=== PATIENT | female | born 1960 | race Hispanic/Latino ===

== ENCOUNTER 2020-03-31 03:39 | Observation (INO) | payer MEDICARE ==
[2020-03-31] MEDS ORDERED: HYDROmorphone 1 MG/1 ML INJ IV ONE (06:59)
[2020-03-31] MEDS ORDERED: KETOROLAC 30 MG/1 ML INJ IV ONE (06:59)
--- NOTE | 2020-03-31 07:00 | Emergency Department Report ---
ED Lower Extremity HPI - General Chief Complaint: Extremity Injury, Lower Stated Complaint: RIGHT LEG PAIN Time Seen by Provider: 03/31/20 06:38 Source: patient, EMS ( EMS documentation not available at time of chart dictation ), RN notes reviewed Mode of arrival: Stretcher Limitations: Physical Limitation - History of Present Illness Initial Comments: Patient is a 59-year-old female. She is not known to myself previously. She has a primary care doctor but she cannot recall their name. She has a past medical history of anxiety and obesity. She is brought to the hospital by emergency medical services after accidental trip and fall. She was at home, slipped, and "tripped over my right ankle." She did not hit her head and neck. She complains of sharp throbbing diffuse ankle pain, without hip pain, knee pain, fever pain, she has distal lower extremity pain, without weakness, numbness. She has a lower extremity abrasion, and is up-to-date with vaccinations. She is not able to bear any weight on the right lower extremity. Her pain is sharp and throbbing, increases with palpation and range of motion, and it decreases with rest. The patient was reportedly given morphine by EMS prior to arrival. The patient states she is not on home oxygen. Apparently, upon arrival, the patient was found to be saturating at 90%, and thus started on supplemental oxygen. However, she denies chest pain or shortness of breath MD Complaint: leg injury, ankle injury -: Sudden, hour(s) Injury: Ankle: Right Type of Injury: blunt Place: home Severity: severe Improves With: rest Worsens With: movement, palpation Context: fall, direct blow Associated Symptoms: snap/pop sensation, swelling, unable to bear weight. denies: numbness, tingling Treatments Prior to Arrival: splint, other - Related Data Home Medications Medication Instructions Recorded Confirmed Last Taken clonazePAM [KlonoPIN] 2 mg PO BID PRN 09/10/14 09/10/14 09/10/14 Previous Rx's Medication Instructions Recorded Last Taken Type Amoxicillin 500 mg PO BID #14 tablet 09/10/14 Unknown Rx Antipyrine/Benzocaine/Glycerin 2 drops AU Q8HR #1 bottle 09/10/14 Unknown Rx [Auralgan Otic Soln] FLUoxetine [PROzac] 30 mg PO QDAY #30 capsule 09/10/14 Unknown Rx HYDROcodone/APAP 5-325 [[place] 1 each PO Q6HR PRN #10 tablet 09/10/14 Unknown Rx 5-325 mg TAB] Paliperidone [Invega] 3 mg PO QAM #30 tablet 09/10/14 Unknown Rx Allergies Allergy/AdvReac Type Severity Reaction Status Date / Time No Known Allergies Allergy Unverified 09/10/14 18:47 ED Review of Systems ROS: Stated complaint: RIGHT LEG PAIN Other details as noted in HPI Constitutional: denies: fever Eyes: denies: eye discharge ENT: denies: congestion Respiratory: denies: shortness of breath, wheezing Cardiovascular: denies: chest pain Gastrointestinal: denies: abdominal pain Musculoskeletal: joint swelling, arthralgia, myalgia Skin: lesions Neurological: denies: weakness, numbness, paresthesias ED Past Medical Hx - Past Medical History Previous Medical History?: Yes Hx Psychiatric Treatment: Yes (schizoaffective disorder) Additional medical history: high cholesterol - Surgical History Past Surgical History?: Yes Additional Surgical History: tubal ligation, hysterectomy (2001), x 2 - Social History Smoking Status: Current Every Day Smoker Substance Use Type: None - Medications Home Medications: Home Medications Medication Instructions Recorded Confirmed Last Taken Type Amoxicillin 500 mg PO BID #14 tablet 09/10/14 Unknown Rx Antipyrine/Benzocaine/Glycerin 2 drops AU Q8HR #1 bottle 09/10/14 Unknown Rx [Auralgan Otic Soln] FLUoxetine [PROzac] 30 mg PO QDAY #30 capsule 09/10/14 Unknown Rx HYDROcodone/APAP 5-325 [[place] 1 each PO Q6HR PRN #10 tablet 09/10/14 Unknown Rx 5-325 mg TAB] Paliperidone [Invega] 3 mg PO QAM #30 tablet 09/10/14 Unknown Rx clonazePAM [KlonoPIN] 2 mg PO BID PRN 09/10/14 09/10/14 09/10/14 History ED Physical Exam - General Limitations: Physical Limitation General appearance: alert, anxious, in distress, obese - Head Head exam: Present: atraumatic, normocephalic - Eye Eye exam: Present: normal appearance, EOMI. Absent: nystagmus - ENT ENT exam: Present: normal exam, normal orophraynx, mucous membranes moist, normal external ear exam - Neck Neck exam: Present: normal inspection, full ROM. Absent: tenderness, meningismus - Respiratory Respiratory exam: Present: normal lung sounds bilaterally. Absent: respiratory distress - Cardiovascular Cardiovascular Exam: Present: regular rate, normal rhythm, normal heart sounds. Absent: bradycardia, tachycardia, irregular rhythm, systolic murmur, diastolic murmur, rubs, gallop - GI/Abdominal GI/Abdominal exam: Present: soft. Absent: distended, tenderness, guarding, rebound, rigid, pulsatile mass - Extremities Exam Extremities exam: Present: tenderness (There is diffuse tenderness to the right ankle. There is no significant foot or fifth metatarsal tenderness. There is no calcaneal tenderness. There is no proximal right knee tenderness. There is no right hip tenderness. Range of motion in the right hip and right knee limited secondary to right ankle pain.), normal capillary refill, other (2+ pulses noted in the bilateral upper and lower extremities. Full range of motion in the bilateral upper extremities, and left lower extremity. There is no pelvic/pelvis tenderness. There is no knee tenderness. There is an abrasion noted to the right lower extremity on the dorsal/medial aspect of the right foot. The left ankle and foot are nontender.). Absent: normal inspection, calf tenderness - Back Exam Back exam: Present: normal inspection, full ROM. Absent: tenderness, CVA tenderness (R), CVA tenderness (L), paraspinal tenderness, vertebral tenderness - Neurological Exam Neurological exam: Present: alert, oriented X3, motor sensory deficit (5 out of 5 strength in 4 extremities. Sensation is intact to light touch in 4 extr emities. Patient able to wiggle bilateral toes. There is no calf tenderness, or Achilles tendon tenderness), other (No facial droop. Tongue midline. Extraocular movements intact bilaterally. Facial sensation intact to light touch in V1, V2, V3 distribution bilaterally. 5 and a 5 strength in 4 extremities. Sensation intact to light touch in 4 extremities.) - Psychiatric Psychiatric exam: Present: anxious - Skin Skin exam: Present: warm, abrasion (Right foot abrasion) ED Course Vital Signs 03/31/20 03/31/20 03/31/20 04:49 06:26 07:27 Temperature 98 F Pulse Rate 88 94 H Respiratory 18 18 16 Rate Blood Pressure 108/56 Blood Pressure 153/93 [Left] O2 Sat by Pulse 90 100 Oximetry 03/31/20 03/31/20 03/31/20 07:57 11:01 15:15 Temperature 97.6 F Pulse Rate 87 Respiratory 16 16 16 Rate Blood Pressure Blood Pressure 90/57 [Left] O2 Sat by Pulse 95 Oximetry - Reevaluation(s) Reevaluation #1: 03/31/20 08:27 Differential diagnosis, including but not limited to: Sprain, strain, fracture, dislocation Assessment and plan: 59-year-old female status post slip and fall, with x-rays demonstrated right lateral and medial malleolus fracture with some displacement. She is neurovascularly intact. X-rays of the knee, tibia/fibula, foot otherwise negative. Patient was noted to be hypoxic, she is not typically on home oxygen by her history, we will obtain x-ray of her chest, and reassess. We will also determine if the patient requires supplemental oxygen at this time. We will treat her pain with hydromorphone and ketorolac. Nonweightbearing, and [place] splint to the right lower extremity. She will need to follow-up with an outpatient orthopedist for definitive repair. Reevaluation #2: 03/31/20 11:59 Splint was applied with good success. However, patient continues to be hypoxic. In addition, blood pressure now in the mid to high 80s. She denies physical pain with the exception of her right ankle fracture. ABG, EKG, laboratory studies ordered, IV fluids ordered. We will continue to closely monitor the patient. Supplemental oxygen is ordered for reapplication Reevaluation #3: 03/31/20 12:20 D-dimer elevated. CT scan of the chest is ordered and pending. Hypoxia improved, on 2 to 3 L. Blood pressure improved. Patient resting comfortably. Updated patient on plan of care. She is amenable to hospitalization. Arterial blood gas appears to demonstrate a mild respiratory acidosis, without metabolic compensation. From an orthopedic/ankle fracture perspective, the patient does not require admission or hospitalization as per discussion with consulting orthopedics. She is supposed to follow-up next week for operative fixation. However, she does require medical hospitalization for hypoxemic respiratory failure, and respiratory acidosis. 03/31/20 13:36 Laboratory studies have also demonstrated renal insufficiency. Nuclear medicine studies ordered, CT scan of the chest was canceled. Patient denies cough, loss of taste or smell. I clinically do not suspect COVID. I have discussed the case with the hospital physician, Dr. Hurtado, who requests a COVID test. He indicates he will followed up. Patient sleeping comfortably in her stretcher at this time, blood pressure is improved Reevaluation #4: 03/31/20 15:52 Nuclear medicine study is low probability for pulmonary embolism. - Consultations Consultation #1: 03/31/20 09:36 We do not have orthopedics on-call for this facility today. Therefore, reached out to [facility] transfer center, and discussed the case with their orthopedist on-call, Dr. Santa Daly We discussed the patient's history, physical, pertinent x-ray findings, and he personally reviewed the patient's ankle x-rays. We both agree the patient does not require emergent transfer at this time for emergent surgical fixation. He is agreeable to splint, nonweightbearing, and close follow-up next week. The patient can follow-up at his group, [facility], . He indicates that short course of NSAIDs would be acceptable. X-ray of the chest is unremarkable. The patient is still sleeping. At this point time, she still requires mild supplemental oxygen, this is likely secondary to obesity, and opioids. Patient will need to be awake in order to be discharged. ED Lower Extremity MDM - Lab Data Result diagrams: 03/31/20 11:37 03/31/20 11:37 Vital Signs 03/31/20 03/31/20 04:49 06:26 Temperature 98 F Pulse Rate 88 94 H Respiratory 18 18 Rate Blood Pressure 108/56 Blood Pressure 153/93 [Left] O2 Sat by Pulse 90 100 Oximetry Lab Results 03/31/20 03/31/20 03/31/20 Range/Units 11:37 11:37 11:37 WBC 5.9 (4.5-11.0) K/mm3 RBC 4.05 (3.65-5.03) M/mm3 Hgb 13.4 (10.1-14.3) gm/dl Hct 40.0 (30.3-42.9) % MCV 99 H (79-97) fl MCH 33 H (28-32) pg MCHC 34 (30-34) % RDW 14.1 (13.2-15.2) % Plt Count 138 L (140-440) K/mm3 Lymph % (Auto) 28.6 (13.4-35.0) % [place] % (Auto) 10.9 H (0.0-7.3) % Eos % (Auto) 2.2 (0.0-4.3) % Baso % (Auto) 1.1 (0.0-1.8) % Lymph # 1.7 (1.2-5.4) K/mm3 [place] # 0.6 (0.0-0.8) K/mm3 Eos # 0.1 (0.0-0.4) K/mm3 Baso # 0.1 (0.0-0.1) K/mm3 Seg Neutrophils % 57.2 (40.0-70.0) % Seg Neutrophils # 3.4 (1.8-7.7) K/mm3 PT 12.6 (12.2-14.9) Sec. INR 0.93 (0.87-1.13) D-Dimer 440.11 H (0-234) ng/mlDDU ABG pH (7.350-7.450) pH Units ABG pCO2 mm Hg ABG pO2 (80.0-90.0) mm Hg ABG HCO3 (20.0-26.0) mmol/L ABG O2 Saturation (95.0-99.0) % ABG O2 Content (0.0-44) ABG Base Excess (-2.0-3.0) mmol/L ABG Hemoglobin (12.0-16.0) gm/dl ABG Carboxyhemoglobin (0.0-5.0) % ABG Methemoglobin (0.0-1.5) % Oxyhemoglobin (95.0-99.0) % FiO2 % Estimated GFR 42 ml/min BUN/Creatinine Ratio 12 % Troponin T < 0.010 (0.00-0.029) ng/mL Albumin/Globulin Ratio 1.2 % 03/31/20 Range/Units 12:07 WBC (4.5-11.0) K/mm3 RBC (3.65-5.03) M/mm3 Hgb (10.1-14.3) gm/dl Hct (30.3-42.9) % MCV (79-97) fl MCH (28-32) pg MCHC (30-34) % RDW (13.2-15.2) % Plt Count (140-440) K/mm3 Lymph % (Auto) (13.4-35.0) % [place] % (Auto) (0.0-7.3) % Eos % (Auto) (0.0-4.3) % Baso % (Auto) (0.0-1.8) % Lymph # (1.2-5.4) K/mm3 [place] # (0.0-0.8) K/mm3 Eos # (0.0-0.4) K/mm3 Baso # (0.0-0.1) K/mm3 Seg Neutrophils % (40.0-70.0) % Seg Neutrophils # (1.8-7.7) K/mm3 PT (12.2-14.9) Sec. INR (0.87-1.13) D-Dimer (0-234) ng/mlDDU ABG pH 7.335 L (7.350-7.450) pH Units ABG pCO2 50.3 mm Hg ABG pO2 57.3 L (80.0-90.0) mm Hg ABG HCO3 26.2 H (20.0-26.0) mmol/L ABG O2 Saturation 89.4 L (95.0-99.0) % ABG O2 Content 15.6 (0.0-44) ABG Base Excess -0.2 (-2.0-3.0) mmol/L ABG Hemoglobin 12.9 (12.0-16.0) gm/dl ABG Carboxyhemoglobin 3.2 (0.0-5.0) % ABG Methemoglobin 0.5 (0.0-1.5) % Oxyhemoglobin 86.0 L (95.0-99.0) % FiO2 21 % Estimated GFR ml/min BUN/Creatinine Ratio % Troponin T (0.00-0.029) ng/mL Albumin/Globulin Ratio % Lab Results 03/31/20 03/31/20 03/31/20 Range/Units 11:37 11:37 11:37 WBC 5.9 (4.5-11.0) K/mm3 RBC 4.05 (3.65-5.03) M/mm3 Hgb 13.4 (10.1-14.3) gm/dl Hct 40.0 (30.3-42.9) % MCV 99 H (79-97) fl MCH 33 H (28-32) pg MCHC 34 (30-34) % RDW 14.1 (13.2-15.2) % Plt Count 138 L (140-440) K/mm3 Lymph % (Auto) 28.6 (13.4-35.0) % [place] % (Auto) 10.9 H (0.0-7.3) % Eos % (Auto) 2.2 (0.0-4.3) % Baso % (Auto) 1.1 (0.0-1.8) % Lymph # 1.7 (1.2-5.4) K/mm3 [place] # 0.6 (0.0-0.8) K/mm3 Eos # 0.1 (0.0-0.4) K/mm3 Baso # 0.1 (0.0-0.1) K/mm3 Seg Neutrophils % 57.2 (40.0-70.0) % Seg Neutrophils # 3.4 (1.8-7.7) K/mm3 PT 12.6 (12.2-14.9) Sec. INR 0.93 (0.87-1.13) D-Dimer 440.11 H (0-234) ng/mlDDU ABG pH (7.350-7.450) pH Units ABG pCO2 mm Hg ABG pO2 (80.0-90.0) mm Hg ABG HCO3 (20.0-26.0) mmol/L ABG O2 Saturation (95.0-99.0) % ABG O2 Content (0.0-44) ABG Base Excess (-2.0-3.0) mmol/L ABG Hemoglobin (12.0-16.0) gm/dl ABG Carboxyhemoglobin (0.0-5.0) % ABG Methemoglobin (0.0-1.5) % Oxyhemoglobin (95.0-99.0) % FiO2 % Sodium 142 (137-145) mmol/L Potassium 5.2 H (3.6-5.0) mmol/L Chloride 103.7 (98-107) mmol/L Carbon Dioxide 26 (22-30) mmol/L Anion Gap 18 mmol/L BUN 15 (7-17) mg/dL Creatinine 1.3 H (0.6-1.2) mg/dL Estimated GFR 42 ml/min BUN/Creatinine Ratio 12 % Glucose 119 H (65-100) mg/dL Calcium 8.9 (8.4-10.2) mg/dL Total Bilirubin 0.20 (0.1-1.2) mg/dL AST 15 (5-40) units/L ALT 19 (7-56) units/L Alkaline Phosphatase 95 (35-129) units/L Troponin T < 0.010 (0.00-0.029) ng/mL Total Protein 6.3 (6.3-8.2) g/dL Albumin 3.4 L (3.9-5) g/dL Albumin/Globulin Ratio 1.2 % 08// Range/Units 12:07 WBC (4.5-11.0) K/mm3 RBC (3.65-5.03) M/mm3 Hgb (10.1-14.3) gm/dl Hct (30.3-42.9) % MCV (79-97) fl MCH (28-32) pg MCHC (30-34) % RDW (13.2-15.2) % Plt Count (140-440) K/mm3 Lymph % (Auto) (13.4-35.0) % [place] % (Auto) (0.0-7.3) % Eos % (Auto) (0.0-4.3) % Baso % (Auto) (0.0-1.8) % Lymph # (1.2-5.4) K/mm3 [place] # (0.0-0.8) K/mm3 Eos # (0.0-0.4) K/mm3 Baso # (0.0-0.1) K/mm3 Seg Neutrophils % (40.0-70.0) % Seg Neutrophils # (1.8-7.7) K/mm3 PT (12.2-14.9) Sec. INR (0.87-1.13) D-Dimer (0-234) ng/mlDDU ABG pH 7.335 L (7.350-7.450) pH Units ABG pCO2 50.3 mm Hg ABG pO2 57.3 L (80.0-90.0) mm Hg ABG HCO3 26.2 H (20.0-26.0) mmol/L ABG O2 Saturation 89.4 L (95.0-99.0) % ABG O2 Content 15.6 (0.0-44) ABG Base Excess -0.2 (-2.0-3.0) mmol/L ABG Hemoglobin 12.9 (12.0-16.0) gm/dl ABG Carboxyhemoglobin 3.2 (0.0-5.0) % ABG Methemoglobin 0.5 (0.0-1.5) % Oxyhemoglobin 86.0 L (95.0-99.0) % FiO2 21 % Sodium (137-145) mmol/L Potassium (3.6-5.0) mmol/L Chloride (98-107) mmol/L Carbon Dioxide (22-30) mmol/L Anion Gap mmol/L BUN (7-17) mg/dL Creatinine (0.6-1.2) mg/dL Estimated GFR ml/min BUN/Creatinine Ratio % Glucose (65-100) mg/dL Calcium (8.4-10.2) mg/dL Total Bilirubin (0.1-1.2) mg/dL AST (5-40) units/L ALT (7-56) units/L Alkaline Phosphatase (35-129) units/L Troponin T (0.00-0.029) ng/mL Total Protein (6.3-8.2) g/dL Albumin (3.9-5) g/dL Albumin/Globulin Ratio % - EKG Data -: EKG Interpreted by Me EKG shows normal: sinus rhythm Rate: normal - EKG Data When compared to previous EKG there are: previous EKG unavailable 03/31/20 12:00 Sinus rhythm, 84 bpm, normal axis, QTC 450 ms, T wave inversions in septal lateral leads, incomplete right bundle branch block, abnormal EKG, the EKG is not a STEMI. - Radiology Data Radiology results: report reviewed, image reviewed interpreted by me: X-ray of the right knee negative for acute findings. X-ray of the right tibia/fibula show right lateral malleolus fracture/right medial malleolus fracture. There is posterior displacement. RIGHT FOOT 2 VIEWS INDICATION / CLINICAL INFORMATION: fall ankle foot pain. COMPARISON: None available. FINDINGS: Trimalleolar ankle fracture with mild subluxation of the talus relative to the tibia. Signer Name: Morteza Jacinto MD FACR Signed: 03/31/2020 8:04 AM Workstation Name: [id number] RIGHT KNEE 3 VIEWS INDICATION / CLINICAL INFORMATION: fall legh pain. COMPARISON: None available. FINDINGS: No significant skeletal abnormality Signer Name: Morteza Jacinto MD FACR Signed: 03/31/2020 8:03 AM Workstation Name: [id number] RIGHT TIBIA AND FIBULA 4 VIEWS INDICATION / CLINICAL INFORMATION: fall leg pain. COMPARISON: None available. FINDINGS: Trimalleolar ankle fracture with mild subluxation of the talus. Signer Name: Morteza Jacinto MD FACR Signed: 03/31/2020 8:02 AM Workstation Name: [id number] Critical care attestation.: If time is entered above; I have spent that time in minutes in the direct care of this critically ill patient, excluding procedure time. ED Disposition Clinical Impression: Acute hypoxemic respiratory failure, Respiratory acidosis, Renal insufficiency Closed right trimalleolar fracture Qualifiers: Encounter type: initial encounter Qualified Code(s): S82.851A - Displaced trimalleolar fracture of right lower leg, initial encounter for closed fracture Disposition: DC-09 OP ADMIT IP TO THIS HOSP Is pt being admited?: Yes Does the pt Need Aspirin: No Condition: Good
--- NOTE | 2020-03-31 09:07 | XRay Report ---
RIGHT TIBIA AND FIBULA 4 VIEWS INDICATION / CLINICAL INFORMATION: fall leg pain. COMPARISON: None available. FINDINGS: Trimalleolar ankle fracture with mild subluxation of the talus. Signer Name: Morteza Jacinto MD FACAbhijit Signed: 03/31/2020 9:02 AM Workstation Name: [id number]
--- NOTE | 2020-03-31 09:07 | XRay Report ---
RIGHT KNEE 3 VIEWS INDICATION / CLINICAL INFORMATION: fall legh pain. COMPARISON: None available. FINDINGS: No significant skeletal abnormality Signer Name: Morteza Jacinto MD FACR Signed: 03/31/2020 9:03 AM Workstation Name: [id number]
--- NOTE | 2020-03-31 09:08 | XRay Report ---
RIGHT FOOT 2 VIEWS INDICATION / CLINICAL INFORMATION: fall ankle foot pain. COMPARISON: None available. FINDINGS: Trimalleolar ankle fracture with mild subluxation of the talus relative to the tibia. Signer Name: Morteza Jacinto MD FACR Signed: 03/31/2020 9:04 AM Workstation Name: [id number]
--- NOTE | 2020-03-31 09:13 | XRay Report ---
CHEST 1 VIEW 0822 INDICATION / CLINICAL INFORMATION: fall ankle pain COMPARISON: 09/10/2014 FINDINGS: SUPPORT DEVICES: None HEART / MEDIASTINUM: No significant abnormality. LUNGS / PLEURA: Less than full degree of inspiration is seen. Mild atelectasis is seen in the left ba se. No definite acute infiltrates are noted. Possibly there is a minimal left pleural effusion. No pn eumothorax. ADDITIONAL FINDINGS: No significant additional findings. IMPRESSION: No significant acute abnormality Signer Name: Oscar Hutchins MD Signed: 03/31/2020 9:08 AM Workstation Name: [id number]
[2020-03-31] MEDS ORDERED: fentaNYL 100 MCG/2 ML INJ IV ONE (10:51)
[2020-03-31] MEDS ORDERED: SODIUM CHLORIDE 0.9% 1000 ML 1,000 ML IV ONE ×2 (11:05→13:26)
[2020-03-31 11:52] LABS: Basophils # (Auto) 0.1 K/mm3 (0.0-0.1); Basophils % (Auto) 1.1 % (0.0-1.8); Eosinophils # (Auto) 0.1 K/mm3 (0.0-0.4); Eosinophils % (Auto) 2.2 % (0.0-4.3); Hemoglobin 13.4 gm/dl (10.1-14.3); Lymphocytes # (Auto) 1.7 K/mm3 (1.2-5.4); Lymphocytes % (Auto) 28.6 % (13.4-35.0); Mean Corpuscular HGB Conc 34 % (30-34); Mean Corpuscular Volume 99 fl (79-97); Monocytes # (Auto) 0.6 K/mm3 (0.0-0.8); Monocytes % (Auto) 10.9 % (0.0-7.3); Platelet Count 138 K/mm3 (140-440); Red Blood Count 4.05 M/mm3 (3.65-5.03); Red Cell Distribution Width 14.1 % (13.2-15.2)
[2020-03-31 12:03] LABS: INR 0.93 (0.87-1.13)
[2020-03-31 12:13] LABS: Alanine Aminotransferase 19 units/L (7-56); Albumin 3.4 g/dL (3.9-5); BUN/Creatinine Ratio 12; Blood Urea Nitrogen 15 mg/dL (7-17); Calcium 8.9 mg/dL (8.4-10.2); Hemolysis Index 5
[2020-03-31 12:19] LABS: ABG Base Excess -0.2 mmol/L (-2.0-3.0); ABG HCO3 26.2 mmol/L (20.0-26.0); ABG Methemoglobin 0.5 % (0.0-1.5); ABG Oxygen Saturation 89.4 % (95.0-99.0); ABG PCO2 50.3 mm Hg; ABG PH 7.335 pH Units (7.350-7.450); ABG PO2 57.3 mm Hg (80.0-90.0)
[2020-03-31] MEDS ORDERED: dexAMETHasone 4 MG/ML VIAL IV ONE (13:36)
[2020-03-31] MEDS ORDERED: ETOMIDATE 20 MG/10 ML INJ IV ONE (14:57)
[2020-03-31] MEDS ORDERED: LIDOCAINE PF 100 MG/5 ML (CARDIAC SYRINGE) IV ONE (14:57)
[2020-03-31] MEDS ORDERED: SUCCINYLCHOLINE CHLORIDE 200 MG/10 ML INJ MDV ONE (14:57)
[2020-03-31] MEDS ORDERED: ONDANSETRON 4 MG/2 ML INJ IV PRN (15:23)
[2020-03-31] MEDS ORDERED: ACETAMINOPHEN 325 MG TAB PO PRN (15:23)
--- NOTE | 2020-03-31 15:39 | Nuclear Medicine Report ---
NM perfusion only lung scan INDICATION / CLINICAL INFORMATION: hypoxia + d dimer. TRACER: [place] 99m MAA 5.5 mCi IV injection. COMPARISON: No relevant prior imaging study available. FINDINGS: Nuclear medicine perfusion only imaging was performed. Perfusion is relatively homogeneous. Negative for suspicious perfusion defect. IMPRESSION: No suspicious perfusion defect. Signer Name: Jonathan Stacy MD Signed: 03/31/2020 3:35 PM Workstation Name: [id number]
--- NOTE | 2020-03-31 15:42 | Consultation ---
History of Present Illness Consult date: 03/31/20 Requesting physician: BRIANDA HENDRICKSON Reason for consult: hypoxemia History of present illness: 59 y/o morbidly obese female presented with right ankle pain after a fall. Subsequently while in ED found to be hypoxic. no complaints of shortness of breath. Medications and Allergies Allergies Allergy/AdvReac Type Severity Reaction Status Date / Time No Known Allergies Allergy Unverified 09/10/14 18:47 Home Medications Medication Instructions Recorded Confirmed Last Taken Type Amoxicillin 500 mg PO BID #14 tablet 09/10/14 Unknown Rx Antipyrine/Benzocaine/Glycerin 2 drops AU Q8HR #1 bottle 09/10/14 Unknown Rx [Auralgan Otic Soln] FLUoxetine [PROzac] 30 mg PO QDAY #30 capsule 09/10/14 Unknown Rx HYDROcodone/APAP 5-325 [[place] 1 each PO Q6HR PRN #10 tablet 09/10/14 Unknown Rx 5-325 mg TAB] Paliperidone [Invega] 3 mg PO QAM #30 tablet 09/10/14 Unknown Rx clonazePAM [KlonoPIN] 2 mg PO BID PRN 09/10/14 09/10/14 09/10/14 History Active Meds: Active Medications Acetaminophen (Tylenol) 650 mg PO Q4H PRN PRN Reason: Pain MILD(1-3)/Fever >100.5/CARO Acetaminophen/Hydrocodone Bitart ([place] 5/325) 1 each PO Q6H PRN PRN Reason: Pain, Moderate (4-6) Albuterol/Ipratropium (Duoneb *Not For Prn Use*) 1 ampul IH Q6HRT [place] Budesonide (Pulmicort) 0.5 mg IH Q12HRT [place] Clonazepam (Klonopin) 1 mg PO BID PRN PRN Reason: Anxiety Fluoxetine HCl (Prozac) 30 mg PO QDAY [place] Heparin Sodium (Porcine) (Heparin) 5,000 unit SUB-Q Q8HR [place] Morphine Sulfate (Morphine) 2 mg IV Q4H PRN PRN Reason: Pain, Moderate (4-6) Ondansetron HCl (Zofran) 4 mg IV Q8H PRN PRN Reason: Nausea And Vomiting Paliperidone (Invega) 3 mg PO QAM [facility] Sodium Chloride (Sodium Chloride Flush Syringe 10 Ml) 10 ml IV BID [place] Sodium Chloride (Sodium Chloride Flush Syringe 10 Ml) 10 ml IV PRN PRN PRN Reason: LINE FLUSH Physical Examination Vital signs: Vital Signs Temp Pulse Resp BP Pulse Ox 98 F 88 18 108/56 90 03/31/20 04:49 03/31/20 04:49 03/31/20 04:49 03/31/20 04:49 03/31/20 04:49 Results - Laboratory Findings CBC and BMP: 03/31/20 11:37 03/31/20 11:37 ABG ABG pH 7.335 pH Units (7.350-7.450) L 03/31/20 12:07 ABG pCO2 50.3 mm Hg 03/31/20 12:07 ABG pO2 57.3 mm Hg (80.0-90.0) L 03/31/20 12:07 ABG O2 Saturation 89.4 % (95.0-99.0) L 03/31/20 12:07 PT/INR, D-dimer PT 12.6 Sec. (12.2-14.9) 03/31/20 11:37 INR 0.93 (0.87-1.13) 03/31/20 11:37 D-Dimer 440.11 ng/mlDDU (0-234) H 03/31/20 11:37 Abnormal lab findings: Abnormal Labs 03/31/20 03/31/20 03/31/20 11:37 11:37 11:37 MCV 99 H MCH 33 H Plt Count 138 L [place] % (Auto) 10.9 H D-Dimer 440.11 H ABG pH ABG pO2 ABG HCO3 ABG O2 Saturation Oxyhemoglobin Potassium 5.2 H Creatinine 1.3 H Glucose 119 H Albumin 3.4 L 03/31/20 12:07 MCV MCH Plt Count [place] % (Auto) D-Dimer ABG pH 7.335 L ABG pO2 57.3 L ABG HCO3 26.2 H ABG O2 Saturation 89.4 L Oxyhemoglobin 86.0 L Potassium Creatinine Glucose Albumin Assessment and Plan 59 y/o female, likely with undiagnosed INNA, and OHS with what is most likely c hronic respiratory failure. 1. Room air ABG qualifies patient for home O2. Needs CM consult to arrange this 2. She needs outpatient INNA study 3. Weight loss 4. Can stop pulmicort and would make nebs PRN, q6
[2020-03-31] MEDS ORDERED: ALBUTEROL 2.5 MG/3 ML NEBU IH PRN (15:47)
--- NOTE | 2020-03-31 17:16 | History and Physical Report ---
History of Present Illness Date of examination: 03/31/20 Date of admission: 03/31/20 13:37 History of present illness: Patient is a 59-year-old morbidly obese white female with history of recently diagnosed type 2 diabetes, schizoaffective disorder apparently tripped and fell and was brought to the ED. x-ray of the ankle showed bimalleolar fracture of the right ankle. Orthopedic surgery was consulted and apparently was told to follow-up in the clinic next week. Patient has a POV slab on her rt ankle. However patient was also noted to be hypoxic and an ABG showed combined respiratory failure with hypoxia and hypercapnia and patient is being admitted for further evaluation. A pulmonary consult was obtained with Dr. Russell and he thinks patient likely has chronic hypoxia from possibly INNA/OHS. convenience store manager has been consulted for arranging home oxygen as she already meets oxygen requirements per ABG results on room air. Past History Past Medical History: diabetes, other (Schizoaffective disorder and depression) Past Surgical History: No surgical history Social history: smoking. denies: alcohol abuse Family history: no significant family history Medications and Allergies Allergies Allergy/AdvReac Type Severity Reaction Status Date / Time No Known Allergies Allergy Unverified 09/10/14 18:47 Home Medications Medication Instructions Recorded Confirmed Last Taken Type Amoxicillin 500 mg PO BID #14 tablet 09/10/14 Unknown Rx Antipyrine/Benzocaine/Glycerin 2 drops AU Q8HR #1 bottle 09/10/14 Unknown Rx [Auralgan Otic Soln] FLUoxetine [PROzac] 30 mg PO QDAY #30 capsule 09/10/14 Unknown Rx HYDROcodone/APAP 5-325 [[place] 1 each PO Q6HR PRN #10 tablet 09/10/14 Unknown Rx 5-325 mg TAB] Paliperidone [Invega] 3 mg PO QAM #30 tablet 09/10/14 Unknown Rx clonazePAM [KlonoPIN] 2 mg PO BID PRN 09/10/14 09/10/14 09/10/14 History Active Meds: Active Medications Acetaminophen (Tylenol) 650 mg PO Q4H PRN PRN Reason: Pain MILD(1-3)/Fever >100.5/CARO Acetaminophen/Hydrocodone Bitart ([place] 5/325) 1 each PO Q6H PRN PRN Reason: Pain, Moderate (4-6) Albuterol (Proventil) 2.5 mg IH Q4HRT PRN PRN Reason: Shortness Of Breath Clonazepam (Klonopin) 1 mg PO BID PRN PRN Reason: Anxiety Fluoxetine HCl (Prozac) 30 mg PO QDAY [facility] Heparin Sodium (Porcine) (Heparin) 5,000 unit SUB-Q Q8HR CLARISSA Insulin Human Lispro (Humalog) 0 unit SUB-Q ACHS CLARISSA; Protocol Morphine Sulfate (Morphine) 2 mg IV Q4H PRN PRN Reason: Pain, Moderate (4-6) Ondansetron HCl (Zofran) 4 mg IV Q8H PRN PRN Reason: Nausea And Vomiting Paliperidone (Invega) 3 mg PO QAM CLARISSA Sodium Chloride (Sodium Chloride Flush Syringe 10 Ml) 10 ml IV BID CLARISSA Sodium Chloride (Sodium Chloride Flush Syringe 10 Ml) 10 ml IV PRN PRN PRN Reason: LINE FLUSH Review of Systems Constitutional: no weight loss, no weight gain, no fever, no chills, no fatigue, no weakness Ears, nose, mouth and throat: no ear pain, no sore throat Cardiovascular: no chest pain, no syncope, no shortness of breath, no high blood pressure Respiratory: no cough, no shortness of breath Gastrointestinal: no nausea, no vomiting, no diarrhea, no constipation, no melena Genitourinary Female: no dysuria Rectal: no pain Integumentary: no rash Neurological: no head injury, no seizures, no syncope Psychiatric: anxiety, depression, other (Schizoaffective disorder), no suicidal ideation Exam - Constitutional Vitals: Temp Pulse Resp BP Pulse Ox 97.6 F 87 16 90/57 95 03/31/20 15:15 03/31/20 15:15 03/31/20 15:15 03/31/20 15:15 03/31/20 15:15 General appearance: Present: no acute distress, obese - EENT Eyes: Present: PERRL, EOM intact ENT: hearing intact, clear oral mucosa - Neck Neck: Present: supple, normal ROM. Absent: masses or JVD - Respiratory Respiratory effort: normal Respiratory: bilateral: CTA, diminished - Cardiovascular Rhythm: regular Heart Sounds: Present: S1 & S2 - Extremities Extremities: No edema Extremity abnormal: other (Has a POP slab on the right ankle) - Abdominal General gastrointestinal: Present: soft, non-tender - Rectal Rectal Exam: deferred - Integumentary Integumentary: Present: clear - Musculoskeletal Musculoskeletal: strength equal bilaterally - Psychiatric Psychiatric: appropriate mood/affect - Neurologic Neurologic: no focal deficits HEART Score - HEART Score Troponin: Troponin T < 0.010 ng/mL (0.00-0.029) 03/31/20 11:37 Results - Labs CBC & Chem 7: 03/31/20 11:37 03/31/20 11:37 Labs: Abnormal lab results 03/31/20 03/31/20 03/31/20 Range/Units 11:37 11:37 11:37 MCV 99 H (79-97) fl MCH 33 H (28-32) pg Plt Count 138 L (140-440) K/mm3 [place] % (Auto) 10.9 H (0.0-7.3) % D-Dimer 440.11 H (0-234) ng/mlDDU ABG pH (7.350-7.450) pH Units ABG pO2 (80.0-90.0) mm Hg ABG HCO3 (20.0-26.0) mmol/L ABG O2 Saturation (95.0-99.0) % Oxyhemoglobin (95.0-99.0) % Potassium 5.2 H (3.6-5.0) mmol/L Creatinine 1.3 H (0.6-1.2) mg/dL Glucose 119 H (65-100) mg/dL Albumin 3.4 L (3.9-5) g/dL 03/31/20 Range/Units 12:07 MCV (79-97) fl MCH (28-32) pg Plt Count (140-440) K/mm3 [place] % (Auto) (0.0-7.3) % D-Dimer (0-234) ng/mlDDU ABG pH 7.335 L (7.350-7.450) pH Units ABG pO2 57.3 L (80.0-90.0) mm Hg ABG HCO3 26.2 H (20.0-26.0) mmol/L ABG O2 Saturation 89.4 L (95.0-99.0) % Oxyhemoglobin 86.0 L (95.0-99.0) % Potassium (3.6-5.0) mmol/L Creatinine (0.6-1.2) mg/dL Glucose (65-100) mg/dL Albumin (3.9-5) g/dL Assessment and Plan - Patient Problems (1) Chronic respiratory failure with hypoxia and hypercapnia Current Visit: Yes Status: Chronic Plan to address problem: Rule out secondary to obesity hypoventilation syndrome Rule out obstructive sleep apnea Needs outpatient sleep study Patient needs home oxygen arrangement prior to discharge Pulmonary consulted Discussed with Dr. Russell (2) Morbid obesity Current Visit: Yes Status: Chronic Plan to address problem: Due to excess calories Patient was counseled about diet, weight loss and exercise if possible Dangers of obesity were explained to the patient (3) Thrombocytopenia Current Visit: Yes Status: Acute Plan to address problem: Mild Baseline platelet count is not known Recheck in a.m. (4) Type 2 diabetes mellitus with insulin therapy Current Visit: Yes Status: Acute (5) Hyperkalemia Current Visit: Yes Status: Acute Plan to address problem: Mild Repeat serum electrolytes in a.m. (6) Closed right trimalleolar fracture Current Visit: Yes Status: Acute Qualifiers: Encounter type: initial encounter Qualified Code(s): S82.851A - Displaced trimalleolar fracture of right lower leg, initial encounter for closed fracture Plan to address problem: Patient has a POP slab on her right foot Apparently per discussion with ED physician, orthopedic surgeon was consulted and he preferred to see the patient in his clinic next week Pain control
[2020-03-31] MEDS ORDERED: SODIUM CHLORIDE 0.9% 1000 ML 1,000 ML ONE (17:30)
[2020-03-31] MEDS ORDERED: BUDESONIDE 0.5 MG/2 ML NEBU IH SCH (20:00)
[2020-03-31] MEDS ORDERED: IPRATROPIUM/ALBUTEROL SULFATE 3 ML AMPUL.NEB IH SCH (20:00)
[2020-03-31] MEDS: HYDROcodone/ACETAMINOPHEN 5-325 MG TAB PO PRN (21:59)
[2020-03-31] MEDS: HEPARIN 5,000 UNIT/1 ML VIAL SUB-Q SCH (21:59)
[2020-03-31] MEDS: INSULIN LISPRO 100 UNIT/ML VIAL 3 mL SUB-Q SCH (22:55)
[2020-04-01] MEDS: HEPARIN 5,000 UNIT/1 ML VIAL SUB-Q SCH ×3 (05:08→21:56)
[2020-04-01 05:48] LABS: Basophils # (Auto) 0.1 K/mm3 (0.0-0.1); Eosinophils # (Auto) 0.1 K/mm3 (0.0-0.4); Eosinophils % (Auto) 2.4 % (0.0-4.3); Hematocrit 37.7 % (30.3-42.9); Hemoglobin 12.6 gm/dl (10.1-14.3); Lymphocytes # (Auto) 1.4 K/mm3 (1.2-5.4); Lymphocytes % (Auto) 25.2 % (13.4-35.0); Mean Corpuscular HGB Conc 33 % (30-34); Mean Corpuscular Volume 99 fl (79-97); Monocytes # (Auto) 0.9 K/mm3 (0.0-0.8); Monocytes % (Auto) 15.8 % (0.0-7.3); Platelet Count 128 K/mm3 (140-440); Red Blood Count 3.81 M/mm3 (3.65-5.03); Red Cell Distribution Width 14.1 % (13.2-15.2)
[2020-04-01 06:17] LABS: Calcium 8.2 mg/dL (8.4-10.2)
[2020-04-01] MEDS: HYDROcodone/ACETAMINOPHEN 5-325 MG TAB PO PRN (11:15)
[2020-04-01] MEDS: PALIPERIDONE ER 3 MG TAB PO SCH (11:16)
[2020-04-01] MEDS: FLUoxetine 10 MG TAB PO SCH (11:16)
--- NOTE | 2020-04-01 13:29 | Progress Note ---
Assessment and Plan Assessment and plan: --Chronic respiratory failure with hypoxia and hypercapnia Current Visit: Yes Status: Chronic Plan to address problem: Rule out secondary to obesity hypoventilation syndrome Rule out obstructive sleep apnea, Needs outpatient sleep study Patient needs home oxygen arrangement prior to discharge Pulmonary consulted, Discussed with Dr. Russell --Morbid obesity Current Visit: Yes Status: Chronic Plan to address problem: Due to excess calories Patient was counseled about diet, weight loss and exercise if possible Dangers of obesity were explained to the patient -- Thrombocytopenia Current Visit: Yes Status: Acute Plan to address problem: Mild Baseline platelet count is not known Recheck in a.m. -- Type 2 diabetes mellitus with insulin therapy Current Visit: Yes Status: Acute -- Hyperkalemia Current Visit: Yes Status: Acute Plan to address problem: Monitor electrolytes --Closed right trimalleolar fracture Current Visit: Yes Status: Acute Patient has a POP slab on her right foot Apparently per discussion with ED physician, orthopedic surgeon was consulted and he preferred to see the patient in his clinic next week Pain control History Interval history: I have seen and examined the patient at the bedside Patient's chart and medications reviewed Feels slightly better Complains of shortness of breath Vital signs reviewed Hospitalist Physical - Constitutional Vitals: Temp Pulse Resp BP Pulse Ox 98.3 F 94 H 22 105/41 93 04/01/20 05:47 04/01/20 05:47 04/01/20 05:47 04/01/20 05:47 04/01/20 05:47 General appearance: Present: no acute distress, well-nourished, obese (Morbidly obese) - EENT Eyes: Present: PERRL, EOM intact - Neck Neck: Present: supple, normal ROM - Respiratory Respiratory effort: normal Respiratory: bilateral: diminished, rhonchi, negative: rales, wheezing - Cardiovascular Rhythm: regular Heart Sounds: Present: S1 & S2 - Extremities Extremities: no ischemia, No edema, abnormal (Right foot dressing in place) - Abdominal General gastrointestinal: soft, non-tender, non-distended, normal bowel sounds - Integumentary Integumentary: Present: clear, warm - Psychiatric Psychiatric: appropriate mood/affect, cooperative - Neurologic Neurologic: CNII-XII intact, moves all extremities HEART Score - HEART Score Troponin: Troponin T < 0.010 ng/mL (0.00-0.029) 03/31/20 11:37 Results - Labs CBC & Chem 7: 04/01/20 05:10 04/01/20 05:10 Labs: Laboratory Last Values WBC 5.6 K/mm3 (4.5-11.0) 04/01/20 05:10 RBC 3.81 M/mm3 (3.65-5.03) 04/01/20 05:10 Hgb 12.6 gm/dl (10.1-14.3) 04/01/20 05:10 Hct 37.7 % (30.3-42.9) 04/01/20 05:10 MCV 99 fl (79-97) H 04/01/20 05:10 MCH 33 pg (28-32) H 04/01/20 05:10 MCHC 33 % (30-34) 04/01/20 05:10 RDW 14.1 % (13.2-15.2) 04/01/20 05:10 Plt Count 128 K/mm3 (140-440) L 04/01/20 05:10 Lymph % (Auto) 25.2 % (13.4-35.0) 04/01/20 05:10 [place] % (Auto) 15.8 % (0.0-7.3) H 04/01/20 05:10 Eos % (Auto) 2.4 % (0.0-4.3) 04/01/20 05:10 Baso % (Auto) 1.0 % (0.0-1.8) 04/01/20 05:10 Lymph # 1.4 K/mm3 (1.2-5.4) 04/01/20 05:10 [place] # 0.9 K/mm3 (0.0-0.8) H 04/01/20 05:10 Eos # 0.1 K/mm3 (0.0-0.4) 04/01/20 05:10 Baso # 0.1 K/mm3 (0.0-0.1) 04/01/20 05:10 Seg Neutrophils % 55.6 % (40.0-70.0) 04/01/20 05:10 Seg Neutrophils # 3.1 K/mm3 (1.8-7.7) 04/01/20 05:10 PT 12.6 Sec. (12.2-14.9) 03/31/20 11:37 INR 0.93 (0.87-1.13) 03/31/20 11:37 D-Dimer 440.11 ng/mlDDU (0-234) H 03/31/20 11:37 ABG pH 7.335 pH Units (7.350-7.450) L 03/31/20 12:07 ABG pCO2 50.3 mm Hg 03/31/20 12:07 ABG pO2 57.3 mm Hg (80.0-90.0) L 03/31/20 12:07 ABG HCO3 26.2 mmol/L (20.0-26.0) H 03/31/20 12:07 ABG O2 Saturation 89.4 % (95.0-99.0) L 03/31/20 12:07 ABG O2 Content 15.6 (0.0-44) 03/31/20 12:07 ABG Base Excess -0.2 mmol/L (-2.0-3.0) 03/31/20 12:07 ABG Hemoglobin 12.9 gm/dl (12.0-16.0) 03/31/20 12:07 ABG Carboxyhemoglobin 3.2 % (0.0-5.0) 03/31/20 12:07 ABG Methemoglobin 0.5 % (0.0-1.5) 03/31/20 12:07 Oxyhemoglobin 86.0 % (95.0-99.0) L 03/31/20 12:07 FiO2 21 % 03/31/20 12:07 Sodium 141 mmol/L (137-145) 04/01/20 05:10 Potassium 4.7 mmol/L (3.6-5.0) 04/01/20 05:10 Chloride 104.2 mmol/L (98-107) 04/01/20 05:10 Carbon Dioxide 24 mmol/L (22-30) 04/01/20 05:10 Anion Gap 18 mmol/L 04/01/20 05:10 BUN 17 mg/dL (7-17) 04/01/20 05:10 Creatinine 1.1 mg/dL (0.6-1.2) 04/01/20 05:10 Estimated GFR 51 ml/min 04/01/20 05:10 BUN/Creatinine Ratio 15 % 04/01/20 05:10 Glucose 139 mg/dL (65-100) H 04/01/20 05:10 POC Glucose 211 (70-105) H 04/01/20 12:56 Calcium 8.2 mg/dL (8.4-10.2) L 04/01/20 05:10 Total Bilirubin 0.20 mg/dL (0.1-1.2) 03/31/20 11:37 AST 15 units/L (5-40) 03/31/20 11:37 ALT 19 units/L (7-56) 03/31/20 11:37 Alkaline Phosphatase 95 units/L (35-129) 03/31/20 11:37 Troponin T < 0.010 ng/mL (0.00-0.029) 03/31/20 11:37 Total Protein 6.3 g/dL (6.3-8.2) 03/31/20 11:37 Albumin 3.4 g/dL (3.9-5) L 03/31/20 11:37 Albumin/Globulin Ratio 1.2 % 03/31/20 11:37 [place]/IV: Voiding Method External Female Catheter Active Medications - Current Medications Current Medications: Generic Name Dose Route Start Last Admin Trade Name Freq PRN Reason Stop Dose Admin Acetaminophen 650 mg 03/31/20 15:23 Tylenol PO Q4H PRN Pain MILD(1-3)/Fever >100.5/CARO Acetaminophen/Hydrocodone Bitart 1 each 03/31/20 15:23 04/01/20 11:15 [place] 5/325 PO 1 each Q6H PRN Administration Pain, Moderate (4-6) Albuterol 2.5 mg 03/31/20 15:47 Proventil IH Q4HRT PRN Shortness Of Breath Clonazepam 1 mg 03/31/20 15:22 Klonopin PO BID PRN Anxiety Fluoxetine HCl 30 mg 04/01/20 10:00 04/01/20 11:16 Prozac PO 30 mg QDAY CLARISSA Administration Heparin Sodium (Porcine) 5,000 unit 03/31/20 22:00 04/01/20 05:08 Heparin SUB-Q 5,000 unit Q8HR CLARISSA Administration Insulin Human Lispro 0 unit 03/31/20 22:00 03/31/20 22:55 Humalog SUB-Q Not Given ACHS [facility] Protocol Morphine Sulfate 2 mg 03/31/20 15:23 Morphine IV Q4H PRN Pain, Moderate (4-6) Ondansetron HCl 4 mg 03/31/20 15:23 Zofran IV Q8H PRN Nausea And Vomiting Paliperidone 3 mg 04/01/20 10:00 04/01/20 11:16 Invega PO 3 mg QAM CLARISSA Administration Sodium Chloride 10 ml 03/31/20 22:00 03/31/20 22:00 Sodium Chloride Flush Syringe 10 Ml IV 10 ml BID CLARISSA Administration Sodium Chloride 10 ml 03/31/20 15:23 Sodium Chloride Flush Syringe 10 Ml IV PRN PRN LINE FLUSH Nutrition/Malnutrition Assess - Dietary Evaluation Nutrition/Malnutrition Findings: Nutrition Notes Start: 04/01/20 11:22 Freq: Status: Active Protocol: Document 04/01/20 11:22 LP (Rec: 04/01/20 11:37 LP [id number]) Nutrition Notes 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 Food preferences noted. Nutrition Intervention Revisit per MD consult or patient Sign Off request:
[2020-04-01] MEDS: INSULIN LISPRO 100 UNIT/ML VIAL 3 mL SUB-Q SCH ×4 (14:17→22:00)
[2020-04-01] MEDS: MORPHINE 2 MG/1 ML INJ IV PRN (22:04)
[2020-04-02] MEDS: HEPARIN 5,000 UNIT/1 ML VIAL SUB-Q SCH ×2 (05:09→14:10)
[2020-04-02] MEDS: MORPHINE 2 MG/1 ML INJ IV PRN (05:23)
--- NOTE | 2020-04-02 08:46 | Progress Note ---
Assessment and Plan Assessment and plan: --Chronic respiratory failure with hypoxia and hypercapnia Current Visit: Yes Status: Chronic Plan to address problem: Rule out secondary to obesity hypoventilation syndrome Rule out obstructive sleep apnea, Needs outpatient sleep study Patient needs home oxygen arrangement prior to discharge Pulmonary consulted, Discussed with Dr. Russell --Morbid obesity Current Visit: Yes Status: Chronic Plan to address problem: Due to excess calories Patient was counseled about diet, weight loss and exercise if possible Dangers of obesity were explained to the patient -- Thrombocytopenia Current Visit: Yes Status: Acute Plan to address problem: Mild Baseline platelet count is not known Recheck in a.m. -- Type 2 diabetes mellitus with insulin therapy Current Visit: Yes Status: Acute -- Hyperkalemia Current Visit: Yes Status: Acute Plan to address problem: Monitor electrolytes --Closed right trimalleolar fracture Current Visit: Yes Status: Acute Patient has a POP slab on her right foot Apparently per discussion with ED physician, orthopedic surgeon was consulted and he preferred to see the patient in his clinic next week Pain control Hospitalist Physical - Constitutional Vitals: Temp Pulse Resp BP Pulse Ox 98.5 F 102 H 16 125/69 91 04/02/20 05:11 04/02/20 05:11 04/02/20 05:11 04/02/20 05:11 04/02/20 05:11 General appearance: Present: no acute distress, well-nourished, obese (Morbidly obese) HEART Score - HEART Score Troponin: Troponin T < 0.010 ng/mL (0.00-0.029) 03/31/20 11:37 Results - Labs CBC & Chem 7: 04/01/20 05:10 04/01/20 05:10 Labs: Laboratory Last Values WBC 5.6 K/mm3 (4.5-11.0) 04/01/20 05:10 RBC 3.81 M/mm3 (3.65-5.03) 04/01/20 05:10 Hgb 12.6 gm/dl (10.1-14.3) 04/01/20 05:10 Hct 37.7 % (30.3-42.9) 04/01/20 05:10 MCV 99 fl (79-97) H 04/01/20 05:10 MCH 33 pg (28-32) H 04/01/20 05:10 MCHC 33 % (30-34) 04/01/20 05:10 RDW 14.1 % (13.2-15.2) 04/01/20 05:10 Plt Count 128 K/mm3 (140-440) L 04/01/20 05:10 Lymph % (Auto) 25.2 % (13.4-35.0) 04/01/20 05:10 [place] % (Auto) 15.8 % (0.0-7.3) H 04/01/20 05:10 Eos % (Auto) 2.4 % (0.0-4.3) 04/01/20 05:10 Baso % (Auto) 1.0 % (0.0-1.8) 04/01/20 05:10 Lymph # 1.4 K/mm3 (1.2-5.4) 04/01/20 05:10 [place] # 0.9 K/mm3 (0.0-0.8) H 04/01/20 05:10 Eos # 0.1 K/mm3 (0.0-0.4) 04/01/20 05:10 Baso # 0.1 K/mm3 (0.0-0.1) 04/01/20 05:10 Seg Neutrophils % 55.6 % (40.0-70.0) 04/01/20 05:10 Seg Neutrophils # 3.1 K/mm3 (1.8-7.7) 04/01/20 05:10 PT 12.6 Sec. (12.2-14.9) 03/31/20 11:37 INR 0.93 (0.87-1.13) 03/31/20 11:37 D-Dimer 440.11 ng/mlDDU (0-234) H 03/31/20 11:37 ABG pH 7.335 pH Units (7.350-7.450) L 03/31/20 12:07 ABG pCO2 50.3 mm Hg 03/31/20 12:07 ABG pO2 57.3 mm Hg (80.0-90.0) L 03/31/20 12:07 ABG HCO3 26.2 mmol/L (20.0-26.0) H 03/31/20 12:07 ABG O2 Saturation 89.4 % (95.0-99.0) L 03/31/20 12:07 ABG O2 Content 15.6 (0.0-44) 03/31/20 12:07 ABG Base Excess -0.2 mmol/L (-2.0-3.0) 03/31/20 12:07 ABG Hemoglobin 12.9 gm/dl (12.0-16.0) 03/31/20 12:07 ABG Carboxyhemoglobin 3.2 % (0.0-5.0) 03/31/20 12:07 ABG Methemoglobin 0.5 % (0.0-1.5) 03/31/20 12:07 Oxyhemoglobin 86.0 % (95.0-99.0) L 03/31/20 12:07 FiO2 21 % 03/31/20 12:07 Sodium 141 mmol/L (137-145) 04/01/20 05:10 Potassium 4.7 mmol/L (3.6-5.0) 04/01/20 05:10 Chloride 104.2 mmol/L (98-107) 04/01/20 05:10 Carbon Dioxide 24 mmol/L (22-30) 04/01/20 05:10 Anion Gap 18 mmol/L 04/01/20 05:10 BUN 17 mg/dL (7-17) 04/01/20 05:10 Creatinine 1.1 mg/dL (0.6-1.2) 04/01/20 05:10 Estimated GFR 51 ml/min 04/01/20 05:10 BUN/Creatinine Ratio 15 % 04/01/20 05:10 Glucose 139 mg/dL (65-100) H 04/01/20 05:10 POC Glucose 129 (70-105) H 04/01/20 22:09 Calcium 8.2 mg/dL (8.4-10.2) L 04/01/20 05:10 Total Bilirubin 0.20 mg/dL (0.1-1.2) 03/31/20 11:37 AST 15 units/L (5-40) 03/31/20 11:37 ALT 19 units/L (7-56) 03/31/20 11:37 Alkaline Phosphatase 95 units/L (35-129) 03/31/20 11:37 Troponin T < 0.010 ng/mL (0.00-0.029) 03/31/20 11:37 Total Protein 6.3 g/dL (6.3-8.2) 03/31/20 11:37 Albumin 3.4 g/dL (3.9-5) L 03/31/20 11:37 Albumin/Globulin Ratio 1.2 % 03/31/20 11:37 Coronavirus (PCR) Negative (Negative) 04/01/20 Unknown Kasper/IV: Voiding Method External Female Catheter Active Medications - Current Medications Current Medications: Generic Name Dose Route Start Last Admin Trade Name Freq PRN Reason Stop Dose Admin Acetaminophen 650 mg 03/31/20 15:23 Tylenol PO Q4H PRN Pain MILD(1-3)/Fever >100.5/CARO Acetaminophen/Hydrocodone Bitart 1 each 03/31/20 15:23 04/01/20 11:15 [place] 5/325 PO 1 each Q6H PRN Administration Pain, Moderate (4-6) Albuterol 2.5 mg 03/31/20 15:47 Proventil IH Q4HRT PRN Shortness Of Breath Clonazepam 1 mg 03/31/20 15:22 Klonopin PO BID PRN Anxiety Fluoxetine HCl 30 mg 04/01/20 10:00 04/01/20 11:16 Prozac PO 30 mg QDAY CLARISSA Administration Heparin Sodium (Porcine) 5,000 unit 03/31/20 22:00 04/02/20 05:09 Heparin SUB-Q 5,000 unit Q8HR CLARISSA Administration Insulin Human Lispro 0 unit 03/31/20 22:00 04/01/20 22:00 Humalog SUB-Q Not Given ACHS [facility] Protocol Morphine Sulfate 2 mg 03/31/20 15:23 04/02/20 05:23 Morphine IV 2 mg Q4H PRN Administration Pain, Moderate (4-6) Ondansetron HCl 4 mg 03/31/20 15:23 Zofran IV Q8H PRN Nausea And Vomiting Paliperidone 3 mg 04/01/20 10:00 04/01/20 11:16 Invega PO 3 mg QAM CLARISSA Administration Sodium Chloride 10 ml 03/31/20 22:00 04/01/20 21:57 Sodium Chloride Flush Syringe 10 Ml IV 10 ml BID CLARISSA Administration Sodium Chloride 10 ml 03/31/20 15:23 Sodium Chloride Flush Syringe 10 Ml IV PRN PRN LINE FLUSH Nutrition/Malnutrition Assess - Dietary Evaluation Nutrition/Malnutrition Findings: Nutrition Notes Start: 04/01/20 11:22 Freq: Status: Active Protocol: Document 04/01/20 11:22 LP (Rec: 04/01/20 11:37 LP [id number]) Nutrition Notes 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 Food preferences noted. Nutrition Intervention Revisit per MD consult or patient Sign Off request:
[2020-04-02] MEDS: FLUoxetine 10 MG TAB PO SCH (09:49)
[2020-04-02] MEDS: PALIPERIDONE ER 3 MG TAB PO SCH (09:50)
[2020-04-02] MEDS: INSULIN LISPRO 100 UNIT/ML VIAL 3 mL SUB-Q SCH ×2 (09:51→13:43)
[2020-04-02] MEDS: HYDROcodone/ACETAMINOPHEN 5-325 MG TAB PO PRN (14:09)
[2020-04-02 14:14] VITALS: BP 114/71
--- NOTE | 2020-04-02 14:33 | Discharge Summary ---
Providers - Providers Date of Admission: 03/31/20 13:37 Date of discharge: 04/02/20 Attending physician: DIANNE ANDRADE 03/31/20 08:22 Consult to Case Management [CONS] Urgent Services Needed at Discharge: Physical Therapy Notified:: awaiting call back 03/31/20 15:48 Consult to Case Management [CONS] Routine Services Needed at Discharge: Home O2 Notified:: cm 04/02/20 08:37 Consult to Physician [CONS] Routine Comment: Drew Roy already saw the pt Consulting Provider: PARTH GARCIA Physician Instructions: Reason For Exam: SOB/INNA/OHS 04/02/20 08:40 Consult to Physician [CONS] Routine Comment: Consulting Provider: FRANNIE MILTON Physician Instructions: Reason For Exam: tri maleolar Ankle fracture 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 Hospitalization Condition: Good Disposition: [id number] HOME UNDER HOME HLTH Time spent for discharge: 32 min Core Measure Documentation - Palliative Care Palliative Care/ Comfort Measures: Not Applicable - Core Measures Any of the following diagnoses?: none Exam - Constitutional Vitals: Temp Pulse Resp BP Pulse Ox 98.6 F 99 H 20 114/71 93 04/02/20 11:54 04/02/20 11:54 04/02/20 11:54 04/02/20 11:54 04/02/20 11:54 General appearance: Present: no acute distress, well-nourished, obese - EENT Eyes: Present: PERRL, EOM intact - Neck Neck: Present: supple, normal ROM - Respiratory Respiratory effort: normal Respiratory: bilateral: diminished, negative: rales, rhonchi, wheezing - Cardiovascular Rhythm: regular Heart Sounds: Present: S1 & S2 - Extremities Extremities: no ischemia, No edema, abnormal (Right ankle fracture, and splint) - Abdominal General gastrointestinal: Present: soft, non-tender, non-distended, normal bowel sounds - Integumentary Integumentary: Present: clear, warm - Musculoskeletal Musculoskeletal: strength equal bilaterally, generalized weakness - Psychiatric Psychiatric: appropriate mood/affect, cooperative - Neurologic Neurologic: moves all extremities Plan Activity: advance as tolerated, fall precautions Diet: low carbohydrate Additional Instructions: Fall precautions. Advised to use home oxygen as needed. Follow-up with pulmonary in 2 weeks for sleep study to rule out obstructive sleep apnea. Follow with orthopedic surgeon Dr. Milton on 04/13/2020. If you have worsening symptoms contact MD or go to emergency room Follow up with: PRIMARY CARE, [Primary Care Provider] - 3-5 Days PARTH GARCIA MD [Staff Physician] - 14 Days FRANNIE MILTON MD [Staff Physician] - 04/13/20 Prescriptions: HYDROcodone/APAP 5-325 [[place] 5-325 mg TAB] 1 each PO Q8H PRN #30 tablet PRN Reason: Pain, Moderate (4-6) Albuterol Mdi (or & Nicu Only) [ProAir HFA Inhaler] 2 puff IH QID PRN #8.5 gram PRN Reason: Shortness Of Breath FLUoxetine [PROzac] 30 mg PO QDAY #14 tablet
== END 2020-04-02 16:30 | disposition home health service (06) ==
LOC: ED 03:39 → 3A 13:37
PROVIDERS: ADMIT Internal Medicine; ATTEND Internal Medicine
DX: J96.12 Chronic respiratory failure with hypercapnia (principal); Z20.828 Contact with and (suspected) exposure to other viral communicable diseases; J96.11 Chronic respiratory failure with hypoxia; S82.851A Displaced trimalleolar fracture of right lower leg, initial encounter for closed fracture; E66.01 Morbid (severe) obesity due to excess calories; E11.9 Type 2 diabetes mellitus without complications; D69.6 Thrombocytopenia, unspecified; E87.5 Hyperkalemia; E87.2 Acidosis; N28.9 Disorder of kidney and ureter, unspecified; F25.9 Schizoaffective disorder, unspecified; F32.9 Major depressive disorder, single episode, unspecified; Z79.4 Long term (current) use of insulin; Z68.41 Body mass index [BMI] 40.0-44.9, adult; W01.0XXA Fall on same level from slipping, tripping and stumbling without subsequent striking against object, initial encounter; Y93.89 Activity, other specified; Y92.89 Other specified places as the place of occurrence of the external cause; Y99.8 Other external cause status
CPT/HCPCS: 36415; 71045; 73562; 73590; 73610; 73620; 78580; 80048; 80053; 82803; 82962; 84484; 85025; 85379; 85610; 93005; 94640; 94760; 96361; 96372; 96374; 96375; 96376; 99285; A9540; G0378; J1100; J1170; J1644; J1885; J2270; J3010; J7030; U0003; J0330; J2001

== ENCOUNTER 2021-12-12 14:42 | Emergency (ER) | payer MEDICARE ==
--- NOTE | 2021-12-12 18:29 | XRay Report ---
CHEST 1 VIEW INDICATION / CLINICAL INFORMATION: AMS. COMPARISON: 03/31/2020 FINDINGS: SUPPORT DEVICES: None. HEART / MEDIASTINUM: No significant abnormality. LUNGS / PLEURA: No significant pulmonary or pleural abnormality. No pneumothorax. ADDITIONAL FINDINGS: No significant additional findings. IMPRESSION: 1. No acute findings. Signer Name: Isac Guevara MD Signed: 12/12/2021 6:25 PM Workstation Name: [id number]
--- NOTE | 2021-12-12 18:33 | Emergency Department Report ---
ED General Adult HPI - General Chief complaint: Psych Stated complaint: REF BY DOCTOR:SEVERE DEPRESSION Time Seen by Provider: 12/12/21 16:24 Source: patient Mode of arrival: Ambulatory Limitations: No Limitations - History of Present Illness Initial comments: patient presents 09/05 being sent here by her psychiatrist for being unable to care fore herself upon his assessment of her. Patient has a hx of schizoaffective disorder, bipolar disorder and VAN. Patient reports visual and auditory hallucinations. Denies suicidal and homicidal ideations, intent and plan. Severity scale (0 -10): 0 - Related Data Home Medications Medication Instructions Recorded Confirmed Last Taken Bupropion HCl [Wellbutrin XL] 300 mg PO QAM 12/12/21 12/12/21 Unknown DULoxetine [Cymbalta] 30 mg PO QDAY 12/12/21 12/12/21 Unknown Divalproex ER [DepaKOTE ER] 500 mg PO QDAY 12/12/21 12/12/21 Unknown LORazepam [Lorazepam] 1 mg PO BID PRN 12/12/21 12/12/21 Unknown haloperidoL [Haldol] 5 mg PO HS 12/12/21 12/12/21 Unknown Allergies Allergy/AdvReac Type Severity Reaction Status Date / Time No Known Allergies Allergy Unverified 12/12/21 15:51 ED Review of Systems ROS: Stated complaint: REF BY DOCTOR:SEVERE DEPRESSION Other details as noted in HPI Comment: All other systems reviewed and negative Constitutional: denies: chills, fever ED Past Medical Hx - Past Medical History Hx Diabetes: Yes Hx Seizures: No Hx Psychiatric Treatment: Yes (schizoaffective disorder) Hx COPD: Yes Hx Dementia: No Additional medical history: high cholesterol - Surgical History Additional Surgical History: tubal ligation, hysterectomy (2001), x 2 - Social History Smoking Status: Unknown if ever smoked - Medications Home Medications: Home Medications Medication Instructions Recorded Confirmed Last Taken Type Bupropion HCl [Wellbutrin XL] 300 mg PO QAM 12/12/21 12/12/21 Unknown History DULoxetine [Cymbalta] 30 mg PO QDAY 12/12/21 12/12/21 Unknown History Divalproex ER [DepaKOTE ER] 500 mg PO QDAY 12/12/21 12/12/21 Unknown History LORazepam [Lorazepam] 1 mg PO BID PRN 12/12/21 12/12/21 Unknown History haloperidoL [Haldol] 5 mg PO HS 12/12/21 12/12/21 Unknown History ED Physical Exam - General Limitations: No Limitations General appearance: alert, in no apparent distress - Head Head exam: Present: atraumatic, normocephalic - Eye Eye exam: Present: PERRL, EOMI - ENT ENT exam: Present: mucous membranes moist, other (airway patent) - Neck Neck exam: Present: other (supple; no JVD) - Respiratory Respiratory exam: Present: other (good air entry, nml I:E, CTAB, no use of SUMAN) - Cardiovascular Cardiovascular Exam: Present: regular rate. Absent: rubs, gallop - GI/Abdominal GI/Abdominal exam: Present: soft, normal bowel sounds. Absent: distended, tenderness - Extremities Exam Extremities exam: Present: full ROM. Absent: tenderness - Back Exam Back exam: Present: full ROM. Absent: tenderness - Neurological Exam Neurological exam: Present: alert, oriented X3, CN II-XII intact. Absent: motor sensory deficit - Psychiatric Psychiatric exam: Present: flat affect, suicidal ideation, other (with visual and auditory hallucinations) - Skin Skin exam: Present: warm, normal color ED Course Vital Signs 12/12/21 12/12/21 12/12/21 15:47 16:27 20:17 Temperature 98.4 F Pulse Rate 92 H Respiratory 16 Rate Blood Pressure 107/67 [Right] O2 Sat by Pulse 99 96 98 Oximetry ED Medical Decision Making - Lab Data Result diagrams: 12/12/21 18:08 12/12/21 18:08 Laboratory Tests 12/12/21 12/12/21 12/12/21 18:08 18:08 18:08 WBC 5.7 RBC 4.40 Hgb 14.3 Hct 42.3 MCV 96 MCH 33 H MCHC 34 RDW 14.2 Plt Count 94 L Lymph % (Auto) 35.4 H Lares % (Auto) 8.9 H Eos % (Auto) 0.6 Baso % (Auto) 1.4 Lymph # (Auto) 2.0 Lares # (Auto) 0.5 Eos # (Auto) 0.0 Baso # (Auto) 0.1 Seg Neutrophils % 53.7 Seg Neutrophils # 3.1 Sodium 143 Potassium 3.7 Chloride 103.6 Carbon Dioxide 28 Anion Gap 15 BUN 11 Creatinine 0.7 Estimated GFR > 60 BUN/Creatinine Ratio 16 Glucose 116 H Calcium 9.7 Total Bilirubin 0.30 AST 9 ALT < 5 L Alkaline Phosphatase 80 Total Protein 6.2 L Albumin 3.5 L Albumin/Globulin Ratio 1.3 Urine Color Urine Turbidity Urine pH Ur Specific Hornbeck Urine Protein Urine Glucose (UA) Urine Ketones Urine Blood Urine Nitrite Urine Bilirubin Urine Urobilinogen Ur Leukocyte Esterase Urine WBC (Auto) Urine RBC (Auto) U Epithel Cells (Auto) Urine Mucus Salicylates < 0.3 L Urine Opiates Screen Urine Methadone Screen Acetaminophen Ur Barbiturates Screen Ur Phencyclidine Scrn Ur Amphetamines Screen U Benzodiazepines Scrn Urine Cocaine Screen U Marijuana (THC) Screen Drugs of Abuse Note Plasma/Serum Alcohol 12/12/21 12/12/21 12/12/21 18:08 18:08 Unknown WBC RBC Hgb Hct MCV MCH MCHC RDW Plt Count Lymph % (Auto) Lares % (Auto) Eos % (Auto) Baso % (Auto) Lymph # (Auto) Lares # (Auto) Eos # (Auto) Baso # (Auto) Seg Neutrophils % Seg Neutrophils # Sodium Potassium Chloride Carbon Dioxide Anion Gap BUN Creatinine Estimated GFR BUN/Creatinine Ratio Glucose Calcium Total Bilirubin AST ALT Alkaline Phosphatase Total Protein Albumin Albumin/Globulin Ratio Urine Color Yana Urine Turbidity Clear Urine pH 6.0 Ur Specific Hornbeck 1.018 Urine Protein 30 mg/dl Urine Glucose (UA) Neg Urine Ketones Tr Urine Blood Sm Urine Nitrite Neg Urine Bilirubin Neg Urine Urobilinogen 4.0 Ur Leukocyte Esterase Neg Urine WBC (Auto) 2.0 Urine RBC (Auto) 5.0 U Epithel Cells (Auto) 7.0 Urine Mucus Few Salicylates Urine Opiates Screen Urine Methadone Screen Acetaminophen 5.0 L Ur Barbiturates Screen Ur Phencyclidine Scrn Ur Amphetamines Screen U Benzodiazepines Scrn Urine Cocaine Screen U Marijuana (THC) Screen Drugs of Abuse Note Plasma/Serum Alcohol < 0.01 12/12/21 Unknown WBC RBC Hgb Hct MCV MCH MCHC RDW Plt Count Lymph % (Auto) Lares % (Auto) Eos % (Auto) Baso % (Auto) Lymph # (Auto) Lares # (Auto) Eos # (Auto) Baso # (Auto) Seg Neutrophils % Seg Neutrophils # Sodium Potassium Chloride Carbon Dioxide Anion Gap BUN Creatinine Estimated GFR BUN/Creatinine Ratio Glucose Calcium Total Bilirubin AST ALT Alkaline Phosphatase Total Protein Albumin Albumin/Globulin Ratio Urine Color Urine Turbidity Urine pH Ur Specific Hornbeck Urine Protein Urine Glucose (UA) Urine Ketones Urine Blood Urine Nitrite Urine Bilirubin Urine Urobilinogen Ur Leukocyte Esterase Urine WBC (Auto) Urine RBC (Auto) U Epithel Cells (Auto) Urine Mucus Salicylates Urine Opiates Screen Presumptive negative Urine Methadone Screen Presumptive negative Acetaminophen Ur Barbiturates Screen Presumptive negative Ur Phencyclidine Scrn Presumptive negative Ur Amphetamines Screen Presumptive negative U Benzodiazepines Scrn Presumptive negative Urine Cocaine Screen Presumptive negative U Marijuana (THC) Screen Presumptive negative Drugs of Abuse Note Disclamer Plasma/Serum Alcohol CXR: no acute cardiopulmonary process CT head: no acute intracranial process - Medical Decision Making Patient medically cleared. 1013 signed. Psych consulted. Critical care attestation.: If time is entered above; I have spent that time in minutes in the direct care of this critically ill patient, excluding procedure time. ED Disposition Clinical Impression: Schizoaffective disorder, Psychosis Disposition: 30 STILL A PATIENT Is pt being admited?: No Does the pt Need Aspirin: No Condition: Stable Time of Disposition: 23:55 (Patient care transferred to Dr. Campos (night time ER doc). Sign out was given by me to him)
[2021-12-12 18:41] LABS: Basophils # (Auto) 0.1 K/mm3 (0.0-0.1); Basophils % (Auto) 1.4 % (0.0-1.8); Eosinophils % (Auto) 0.6 % (0.0-4.3); Hematocrit 42.3 % (30.3-42.9); Hemoglobin 14.3 gm/dl (10.1-14.3); Lymphocytes % (Auto) 35.4 % (13.4-35.0); Mean Corpuscular HGB Conc 34 % (30-34); Mean Corpuscular Volume 96 fl (79-97); Monocytes # (Auto) 0.5 K/mm3 (0.0-0.8); Monocytes % (Auto) 8.9 % (0.0-7.3); Red Cell Distribution Width 14.2 % (13.2-15.2)
[2021-12-12 18:45] LABS: Albumin 3.5 g/dL (3.9-5); Blood Urea Nitrogen 11 mg/dL (7-17); Calcium 9.7 mg/dL (8.4-10.2); Hemolysis Index 7
[2021-12-12 18:46] LABS: Alanine Aminotransferase < 5 units/L (7-56); BUN/Creatinine Ratio 16
[2021-12-12 18:53] LABS: Platelet Count 94 K/mm3 (140-440)
--- NOTE | 2021-12-12 20:43 | Cat Scan Report ---
CT head/brain wo con INDICATION / CLINICAL INFORMATION: 61 years Female; AMS. TECHNIQUE: Routine CT head without contrast. All CT scans at this location are performed using CT dos e reduction for ALARA by means of automated exposure control. COMPARISON: None. FINDINGS: BRAIN / INTRACRANIAL CONTENTS: The brain appears to demonstrate appropriate attenuation for age. The ventricular system is within normal limits in size and configuration. There is no clear CT evidence o f acute intracranial hemorrhage or significant mass effect. ORBITS: No significant abnormality of visualized orbits. SINUSES / MASTOIDS: No significant abnormality in the visualized paranasal sinuses or mastoid air keegan ls. CRANIOCERVICAL JUNCTION: No significant abnormality. ADDITIONAL FINDINGS: None. IMPRESSION: 1. There is no CT evidence of acute intracranial process. Signer Name: Franky Aparicio MD Signed: 12/12/2021 8:38 PM Workstation Name: [id number]
[2021-12-12 22:40] LABS: Bilirubin,Urine NEG (Negative); Blood,Urine SM (Negative); Color,Urine Amber (Yellow); Mucus,Urine FEW /HPF
[2021-12-12 22:44] LABS: Amphetamine Screen,Urine PRESUMPTIVE NEGATIVE; Benzodiazepines Screen,Urine PRESUMPTIVE NEGATIVE; Cannabinoid Screen,Urine PRESUMPTIVE NEGATIVE; Cocaine Screen,Urine PRESUMPTIVE NEGATIVE; Methadone Screen,Urine PRESUMPTIVE NEGATIVE; Opiate Screen,Urine PRESUMPTIVE NEGATIVE
[2021-12-13] MEDS ORDERED: LOPERAMIDE 2 MG CAP PO ONE (07:38)
[2021-12-13 09:20] VITALS: BP 134/98
--- NOTE | 2021-12-13 10:20 | Consultation ---
History of Present Illness - Reason for Consult Consult date: 12/13/21 Reason for consult: hallucinations - History of Present Psychiatric Illness HPI: patient presents 09/05 being sent here by her psychiatrist for being unable to care fore herself upon his assessment of her. Patient has a hx of schizoaffective disorder, bipolar disorder and VAN. Patient reports visual and auditory hallucinations. Denies suicidal and homicidal ideations, intent and plan. The patient was seen today. The patient is a poor historian. She appears anxious. She is shaking and a little fidgety. She states she is always like this. The patient says she was sent to the hospital by her psychiatrist. She is unable to tell my why her psychiatrist thought she could come. She says she has a history of schizoaffective. She can not recall any of the meds she takes. The patient denies SI/HI. She says "sometimes" when asking about hallucinations. She could not explain what they were. Will recommend inpatient treatment to get the patient stabilized on her medications. PSYCH HISTORY Diagnoses: Schizoaffective Suicide attempts or Self-harm behavior: Denies Prior psychiatric hospitalizations: Yes Substance Abuse history: Nicotine Previous psychiatric medications tried: could not recall Outpatient treatment: would not answer PAST MEDICAL HISTORY: None reported Family Psychiatric History: None reported or documented SOCIAL HISTORY Marital Status: Single Living Arrangements: with someone Employment Status: Disabled Access to guns/weapons: Denies Education: History of Abuse: Denies Legal History: Denies REVIEW OF SYSTEMS Constitutional: Negative for weight loss ENT: Negative for stridor Respiratory: Negative for cough or hemoptysis All other systems reviewed and are negative MENTAL STATUS EXAMINATION General Appearance and Behavior: Age appropriate, anxious, cooperative Cooperation: Participating/engaged, Psychomotor Behavior: psychomotor retardation Mood: anxious Affect and affective range: congruent with stated mood Thought Process: circumstantial Thought Content: hallucinations Speech: Normal tone and pace Suicidal Ideation: Denies Homicidal Ideation: Denies Hallucination: auditory Delusions: None elicited Impulse Control: Limited Insight and Judgment: Limited insight and poor judgment, Memory: Limited Attention: Divided Orientation: Alert, oriented Assessment and Plan (1) Schizoaffective Disorder Current Visit: Yes Status: Acute Treatment Plan Restart Home meds Risks, benefits and alternatives of medications discussed with the patient, questions answered and consent obtained from patient. PSYCHOTHERAPY: Supportive psychotherapy provided MEDICAL: Per primary team DELIRIUM PRECAUTIONS: Please re-orient patient frequently, keep lights on during the day, and minimize benzodiazepines and opiates as these medications could worsen patient's confusion. RISK ENGINEER: per primary DISPOSITION: recommend acute psychiatric inpatient treatment FOLLOW-UP: Will follow Thank you for the consult. Please contact with any questions and/or concerns. Case staffed with Dr. Laguna Medications and Allergies Allergies Allergy/AdvReac Type Severity Reaction Status Date / Time No Known Allergies Allergy Unverified 12/12/21 15:51 Home Medications Medication Instructions Recorded Confirmed Last Taken Type Bupropion HCl [Wellbutrin XL] 300 mg PO QAM 12/12/21 12/12/21 Unknown History DULoxetine [Cymbalta] 30 mg PO QDAY 12/12/21 12/12/21 Unknown History Divalproex ER [DepaKOTE ER] 500 mg PO QDAY 12/12/21 12/12/21 Unknown History LORazepam [Lorazepam] 1 mg PO BID PRN 12/12/21 12/12/21 Unknown History haloperidoL [Haldol] 5 mg PO HS 12/12/21 12/12/21 Unknown History Mental Status Exam - Vital signs Last Vital Signs Temp 98.2 F 12/13/21 09:18 Pulse 66 12/13/21 09:18 Resp 18 12/13/21 09:18 BP 134/98 12/13/21 09:18 Pulse Ox 98 12/13/21 09:18 Results Result Diagrams: 12/12/21 18:08 12/12/21 18:08 Abnormal lab results 12/12/21 12/12/21 12/12/21 Range/Units 18:08 18:08 18:08 MCH 33 H (28-32) pg Plt Count 94 L (140-440) K/mm3 Lymph % (Auto) 35.4 H (13.4-35.0) % Mcpherson % (Auto) 8.9 H (0.0-7.3) % Glucose 116 H (65-100) mg/dL ALT < 5 L (7-56) units/L Total Protein 6.2 L (6.3-8.2) g/dL Albumin 3.5 L (3.9-5) g/dL Salicylates < 0.3 L (2.8-20.0) mg/dL Acetaminophen (10.0-30.0) ug/mL 12/12/21 Range/Units 18:08 MCH (28-32) pg Plt Count (140-440) K/mm3 Lymph % (Auto) (13.4-35.0) % Mcpherson % (Auto) (0.0-7.3) % Glucose (65-100) mg/dL ALT (7-56) units/L Total Protein (6.3-8.2) g/dL Albumin (3.9-5) g/dL Salicylates (2.8-20.0) mg/dL Acetaminophen 5.0 L (10.0-30.0) ug/mL All other labs normal.
[2021-12-13] MEDS ORDERED: LORazepam 1 MG TAB PO PRN (10:35)
[2021-12-13] MEDS ORDERED: DIVALPROEX ER 500 MG TAB PO SCH (11:00)
[2021-12-13] MEDS ORDERED: DULoxetine 30 MG CAP PO SCH (11:00)
--- NOTE | 2021-12-13 11:30 | Emergency Department Report ---
Blank Doc - Documentation Documentation: 61-year-old female who has been medically cleared and accepted for inpatient t reatment [facility] for acute psychosis.
[2021-12-13] MEDS ORDERED: HALOPERIDOL 5 MG TAB PO SCH (22:00)
[2021-12-14] MEDS ORDERED: buPROPion XL 150 MG TAB PO SCH (10:00)
[2021-12-14] MEDS ORDERED: NON-FORMULARY EACH (Bupropion Hcl [Wellbutrin Xl] 300 MG Tab.Er.24h) PO SCH (10:00)
== END 2021-12-13 11:59 ==
LOC: ED 14:42 → EEVIPCON 14:42 → ED 12-13 11:59
DX: F20.9 Schizophrenia, unspecified (principal); E11.9 Type 2 diabetes mellitus without complications; Z20.822 Contact with and (suspected) exposure to COVID-19; J44.9 Chronic obstructive pulmonary disease, unspecified; E78.00 Pure hypercholesterolemia, unspecified; Z90.710 Acquired absence of both cervix and uterus; Z98.51 Tubal ligation status; Z79.899 Other long term (current) drug therapy
CPT/HCPCS: 36415; 70450; 71045; 80053; 80307; 81001; 82962; 85025; 99285; U0003; 80320; G0480